=== PATIENT | male | born 1960 ===

== ENCOUNTER 2019-02-28 17:43 | Emergency (ER) | payer SELFPAY ==
--- NOTE | 2019-02-28 17:59 | EDPHYS ---
Physician Documentation [facility] Name: Pedro Mon Age: 59 yrs Sex: Male : 1960 Arrival Date: 02/28/2019 Time: 17:45 Bed 3 Private MD: ED Physician Bryan Abrams HPI: 02/28 17:52 This 59 yrs old Male presents to ER via Wheelchair with complaints of chest concepción pain. 17:52 The patient or guardian reports chest pain that is located primarily in the substernal conecpción area. Onset: just prior to arrival. The pain does not radiate. Associated signs and symptoms: Pertinent positives: diaphoresis, lightheadedness, nausea, shortness of breath. The chest pain is described as clutching, crushing, a heaviness, a pressure. Modifying factors: The symptoms are alleviated by nothing. the symptoms are aggravated by nothing. Severity of pain: At its worst the pain was moderate in the emergency department the pain is unchanged. The patient has not experienced similar symptoms in the past. Historical: - Allergies: 17:50 No Known Allergies; ph - Home Meds: 17:50 None [Active]; ph - PMHx: 17:50 None; ph - Immunization history:: Adult Immunizations unknown. - Social history:: Smoking status: unknown. - Ebola Screening: : No symptoms or risks identified at this time. - Family history:: not pertinent. ROS: 17:52 Constitutional: Negative for fever, chills, and weight loss, Eyes: Negative for injury, concepción pain, redness, and discharge, ENT: Negative for injury, pain, and discharge, Neck: Negative for injury, pain, and swelling, Cardiovascular: Negative for chest pain, palpitations, and edema, Respiratory: Negative for shortness of breath, cough, wheezing, and pleuritic chest pain, Abdomen/GI: Negative for abdominal pain, nausea, vomiting, diarrhea, and constipation, Back: Negative for injury and pain, : Negative for injury, bleeding, discharge, and swelling, MS/Extremity: Negative for injury and deformity, Skin: Negative for injury, rash, and discoloration, Neuro: Negative for headache, weakness, numbness, tingling, and seizure, Psych: Negative for depression, anxiety, suicide ideation, homicidal ideation, and hallucinations, Allergy/Immunology: Negative for hives, rash, and allergies, Endocrine: Negative for neck swelling, polydipsia, polyuria, polyphagia, and marked weight changes, Hematologic/Lymphatic: Negative for swollen nodes, abnormal bleeding, and unusual bruising. Exam: 17:52 Constitutional: This is a well developed, well nourished patient who is awake, alert, concepción and in no acute distress. Head/Face: Normocephalic, atraumatic. Eyes: Pupils equal round and reactive to light, extra-ocular motions intact. Lids and lashes normal. Conjunctiva and sclera are non-icteric and not injected. Cornea within normal limits. Periorbital areas with no swelling, redness, or edema. ENT: Nares patent. No nasal discharge, no septal abnormalities noted. Tympanic membranes are normal and external auditory canals are clear. Oropharynx with no redness, swelling, or masses, exudates, or evidence of obstruction, uvula midline. Mucous membranes moist. Neck: Trachea midline, no thyromegaly or masses palpated, and no cervical lymphadenopathy. Supple, full range of motion without nuchal rigidity, or vertebral point tenderness. No Meningismus. Chest/axilla: Normal chest wall appearance and motion. Nontender with no deformity. No lesions are appreciated. Cardiovascular: Regular rate and rhythm with a normal S1 and S2. No gallops, murmurs, or rubs. Normal PMI, no JVD. No pulse deficits. Respiratory: Lungs have equal breath sounds bilaterally, clear to auscultation and percussion. No rales, rhonchi or wheezes noted. No increased work of breathing, no retractions or nasal flaring. Abdomen/GI: Soft, non-tender, with normal bowel sounds. No distension or tympany. No guarding or rebound. No evidence of tenderness throughout. Back: No spinal tenderness. No costovertebral tenderness. Full range of motion. MS/ Extremity: Pulses equal, no cyanosis. Neurovascular intact. Full, normal range of motion. Neuro: Awake and alert, GCS 15, oriented to person, place, time, and situation. Cranial nerves II-XII grossly intact. Motor strength 5/5 in all extremities. Sensory grossly intact. Cerebellar exam normal. Normal gait. Psych: Awake, alert, with orientation to person, place and time. Behavior, mood, and affect are within normal limits. 17:52 Skin: Appearance: Color: normal in color, Temperature: cool, Moisture: diaphoretic, petechiae, not noted, ecchymosis, not noted. Vital Signs: 17:49 BP 157 / 109; Pulse 96; Resp 25; Temp 98(O); Pulse Ox 99% ; Weight 77.11 kg (M); Pain tw2 10/10; 18:05 BP 147 / 87; Pulse 91; Resp 16; Pulse Ox 99% on R/A; tw2 18:26 BP 151 / 107; Pulse 70; Resp 15; Pulse Ox 98% on R/A; tw2 18:32 BP 154 / 110; Pulse 80; Resp 17; Pulse Ox 98% on R/A; tw2 MDM: 17:46 Patient medically screened. [facility] 17:52 Data reviewed: vital signs, nurses notes, lab test result(s), EKG, radiologic studies, concepción plain films. 02/28 17:52 Order name: Basic Metabolic Panel [facility] 02/28 17:52 Order name: CBC with Diff [facility] 02/28 17:52 Order name: LFT's [facility] 02/28 17:52 Order name: Magnesium [facility] 02/28 17:52 Order name: NT PRO-BNP [facility] 02/28 17:52 Order name: PT-INR [facility] 02/28 17:52 Order name: Troponin (emerg Dept Use Only) [facility] 02/28 17:52 Order name: XRAY Chest (1 view) [facility] 02/28 17:52 Order name: EKG; Complete Time: 17:53 [facility] 02/28 17:52 Order name: Cardiac monitoring; Complete Time: 18:04 [facility] 02/28 17:52 Order name: EKG - Nurse/Tech; Complete Time: 18:04 [facility] 02/28 17:52 Order name: IV Saline Lock; Complete Time: 18:04 [facility] 02/28 17:52 Order name: Labs collected and sent; Complete Time: 18:04 [facility] 02/28 17:52 Order name: O2 Per Protocol; Complete Time: 18:04 [facility] 02/28 17:52 Order name: O2 Sat Monitoring; Complete Time: 18:04 [facility] 02/28 17:52 Order name: NPO; Complete Time: 18:00 [facility] Administered Medications: 17:49 Drug: Aspirin Chewable Tablet 324 mg Route: PO; tw2 18:04 Follow up: Response: No adverse reaction tw2 17:50 Drug: Heparin ([place]-Bolus with thrombolytic) - HEParin 60 units/kg {Co-Signature: ph tw2 (Alycia Farmer RN).} Route: IVP; Site: left antecubital; 18:29 Follow up: Response: No adverse reaction tw2 17:53 CANCELLED (Duplicate Order): HEParin 5000 units IV at 1 bolus once tw2 17:53 CANCELLED (Duplicate Order): Aspirin Chewable Tablet 324 mg PO once; 81 mg tablets x 4 tw2 17:53 CANCELLED (Duplicate Order): Tenecteplase 40 mg IV at bolus once tw2 17:54 Drug: NS 0.9% 1000 ml Route: IV; Rate: 1 bolus; Site: left antecubital; tw2 18:28 Follow up: Response: No adverse reaction; IV Status: Completed infusion; IV Intake: tw2 1000ml 17:54 Drug: Tenecteplase 40 mg {Co-Signature: ss (Annie Webber RN).} {Note: administered by tw2 Annie Webber RN.} Route: IV; Rate: per protocol; Site: left antecubital; 17:58 Follow up: Response: No adverse reaction; IV Status: Completed infusion tw2 17:56 Drug: morphine 4 mg Route: IVP; Site: left antecubital; tw2 18:26 Follow up: Response: No adverse reaction; Pain is unchanged, physician notified tw2 17:56 Drug: Zofran 4 mg Route: IVP; Site: left antecubital; tw2 18:26 Follow up: Response: No adverse reaction tw2 18:01 Drug: Heparin ([place] Drip) 12 units/kg/hr - (HEParin 58987 units, D5W 500 ml) tw2 {Co-Signature: ph (Alycia Farmer RN).} Route: IV; Rate: calculated rate; Site: left antecubital; 18:33 Follow up: IV Status: Infusion continued upon transfer tw2 18:05 Drug: morphine 4 mg Route: IVP; Site: right antecubital; tw2 18:23 Follow up: Response: No adverse reaction; Pain is unchanged, physician notified tw2 18:20 Drug: Zofran 4 mg Route: IVP; Site: right antecubital; tw2 18:37 Follow up: Response: No adverse reaction ph 18:23 Drug: morphine 4 mg Route: IVP; Site: right antecubital; tw2 18:36 Follow up: Response: No adverse reaction ph 18:39 Follow up: Response: No adverse reaction; Pain is decreased tw2 18:25 Drug: Lopressor 2.5 mg Route: IVP; Site: right antecubital; tw2 18:26 Follow up: BP 151 / 107; Pulse 70 bpm; Resp 15 bpm; Pulse Ox 98% RA; Response: No tw2 adverse reaction 18:25 Drug: Lopressor 2.5 mg Route: IVP; Site: right antecubital; tw2 18:33 Follow up: Response: No adverse reaction tw2 18:36 Drug: Lopressor 2.5 mg Route: IVP; Site: right antecubital; ph 18:39 Follow up: Response: No adverse reaction tw2 Disposition: 02/28/19 17:58 Transfer ordered to [facility]. Diagnosis are ST elevation (STEMI) myocardial infarction of inferior wall, Essential (primary) hypertension. - Reason for transfer: Higher level of care. - Accepting physician is dr moreno. - Condition is Serious. - Problem is new. - Symptoms are unchanged. Signatures: Dispatcher [employer] Bryan Tirado MD MD cha Hall, Patricia, RN RN ph Sunita Cam RN RN 2 Alycia Farmer RN ph Annie Webber RN Corrections: (The following items were deleted from the chart) 17:53 17:52 HEParin 5000 units IV at 1 bolus once ordered. [facility] tw2 17:53 17:52 Aspirin Chewable Tablet 324 mg PO once; 81 mg tablets x [address]. [place] [id number] 17:53 17:52 Tenecteplase 40 mg IV at bolus once ordered. 2 tw2 18:40 17:58 02/28/2019 17:58 Transfer ordered to [facility]. Diagnosis is tw2 ST elevation (STEMI) myocardial infarction of inferior wall; Essential (primary) hypertension. Reason for transfer: Higher level of care. Accepting physician is dr moreno. Condition is Serious. Problem is new. Symptoms are unchanged. [facility]
--- NOTE | 2019-02-28 17:59 | ER ---
Nurse's Notes [facility] Name: Pedro Mon Age: 59 yrs Sex: Male : 1960 Arrival Date: 02/28/2019 Time: 17:45 Bed 3 Private MD: Diagnosis: ST elevation (STEMI) myocardial infarction of inferior wall;Essential (primary) hypertension Presentation: 02/28 17:51 Presenting complaint: Brought in by neighbor who found pt down in yard, c/o chest pain ph after doing yard work. Transition of care: patient was not received from another setting of care. Onset of symptoms was February 28, 2019. Risk Assessment: Do you want to hurt yourself or someone else? Patient reports no desire to harm self or others. Initial Sepsis Screen: Does the patient meet any 2 criteria? No. Patient's initial sepsis screen is negative. Does the patient have a suspected source of infection? No. Patient's initial sepsis screen is negative. Care prior to arrival: None. 17:51 Acuity: SARAH 1 ph 17:51 Method Of Arrival: Wheelchair Triage Assessment: 17:47 General: Appears uncomfortable, Behavior is anxious. Pain: Complains of pain in chest. tw2 EENT: No signs and/or symptoms were reported regarding the EENT system. Neuro: Level of Consciousness is awake, alert, obeys commands, Oriented to person, place, time, situation. Neuro:. Cardiovascular: Reports chest pain, Heart tones S1 S2 Capillary refill. Respiratory: Airway is patent Respiratory effort is even, unlabored, Respiratory pattern is regular, tachypnea Breath sounds are clear bilaterally. GI: No signs and/or symptoms were reported involving the gastrointestinal system. : No signs and/or symptoms were reported regarding the genitourinary system. Derm: Skin is intact, is healthy with good turgor, Skin is diaphoretic, Skin temperature is warm. Musculoskeletal: Range of motion: intact in all extremities. Historical: - Allergies: 17:50 No Known Allergies; ph - Home Meds: 17:50 None [Active]; ph - PMHx: 17:50 None; ph - Immunization history:: Adult Immunizations unknown. - Social history:: Smoking status: unknown. - Ebola Screening: : No symptoms or risks identified at this time. - Family history:: not pertinent. Screenin:04 Abuse screen: Denies threats or abuse. Nutritional screening: No deficits noted. tw2 Tuberculosis screening: No symptoms or risk factors identified. Fall Risk None identified. Assessment: 18:05 Reassessment: see triage assessment. tw2 18:17 Reassessment: Pt reports that pain has decreased to 6/10, denies nausea, report called ph to [facility], awaiting [facility]. 18:37 Reassessment: [facility] at bedside. ph 18:40 Reassessment: Patient and/or family updated on plan of care and expected duration. Pain tw2 level reassessed. Patient is alert, oriented x 3, equal unlabored respirations, skin warm/dry/pink. pt rolling out on [facility] stretcher at this time. Vital Signs: 17:49 BP 157 / 109; Pulse 96; Resp 25; Temp 98(O); Pulse Ox 99% ; Weight 77.11 kg (M); Pain tw2 10/10; 18:05 BP 147 / 87; Pulse 91; Resp 16; Pulse Ox 99% on R/A; tw2 18:26 BP 151 / 107; Pulse 70; Resp 15; Pulse Ox 98% on R/A; tw2 18:32 BP 154 / 110; Pulse 80; Resp 17; Pulse Ox 98% on R/A; tw2 ED Course: 17:45 Patient arrived in ED. tw2 17:45 Bryan Abrams MD is Attending Physician. [facility] 17:45 Bed in low position. Call light in reach. sales and in home delivery specialist on. Pulse ox on. NIBP on. tw2 17:45 Inserted saline lock: 20 gauge in right antecubital area, using aseptic technique. ph Blood collected. Inserted saline lock: 18 gauge in left antecubital area, using aseptic technique. 17:50 Alycia Farmer, RN is Primary Nurse. ph 17:52 Triage completed. ph 18:04 Arm band placed on. tw2 18:10 XRAY Chest (1 view) In Process Unspecified. EDMS 18:38 No provider procedures requiring assistance completed. ph 18:40 Patient transferred, IV remains in place. ph Administered Medications: 17:49 Drug: Aspirin Chewable Tablet 324 mg Route: PO; tw2 18:04 Follow up: Response: No adverse reaction tw2 17:50 Drug: Heparin ([place]-Bolus with thrombolytic) - HEParin 60 units/kg {Co-Signature: ph tw2 (Alycia Farmer RN).} Route: IVP; Site: left antecubital; 18:29 Follow up: Response: No adverse reaction tw2 17:53 CANCELLED (Duplicate Order): HEParin 5000 units IV at 1 bolus once tw2 17:53 CANCELLED (Duplicate Order): Aspirin Chewable Tablet 324 mg PO once; 81 mg tablets x 4 tw2 17:53 CANCELLED (Duplicate Order): Tenecteplase 40 mg IV at bolus once tw2 17:54 Drug: NS 0.9% 1000 ml Route: IV; Rate: 1 bolus; Site: left antecubital; tw2 18:28 Follow up: Response: No adverse reaction; IV Status: Completed infusion; IV Intake: tw2 1000ml 17:54 Drug: Tenecteplase 40 mg {Co-Signature: ss (Annie Webber RN).} {Note: administered by tw2 Annie Webber RN.} Route: IV; Rate: per protocol; Site: left antecubital; 17:58 Follow up: Response: No adverse reaction; IV Status: Completed infusion tw2 17:56 Drug: morphine 4 mg Route: IVP; Site: left antecubital; tw2 18:26 Follow up: Response: No adverse reaction; Pain is unchanged, physician notified tw2 17:56 Drug: Zofran 4 mg Route: IVP; Site: left antecubital; tw2 18:26 Follow up: Response: No adverse reaction tw2 18:01 Drug: Heparin ([place] Drip) 12 units/kg/hr - (HEParin 83043 units, D5W 500 ml) tw2 {Co-Signature: ph (Alycia Farmer RN).} Route: IV; Rate: calculated rate; Site: left antecubital; 18:33 Follow up: IV Status: Infusion continued upon transfer tw2 18:05 Drug: morphine 4 mg Route: IVP; Site: right antecubital; tw2 18:23 Follow up: Response: No adverse reaction; Pain is unchanged, physician notified tw2 18:20 Drug: Zofran 4 mg Route: IVP; Site: right antecubital; tw2 18:37 Follow up: Response: No adverse reaction 18:23 Drug: morphine 4 mg Route: IVP; Site: right antecubital; tw2 18:36 Follow up: Response: No adverse reaction ph 18:39 Follow up: Response: No adverse reaction; Pain is decreased tw2 18:25 Drug: Lopressor 2.5 mg Route: IVP; Site: right antecubital; tw2 18:26 Follow up: BP 151 / 107; Pulse 70 bpm; Resp 15 bpm; Pulse Ox 98% RA; Response: No tw2 adverse reaction 18:25 Drug: Lopressor 2.5 mg Route: IVP; Site: right antecubital; tw2 18:33 Follow up: Response: No adverse reaction tw2 18:36 Drug: Lopressor 2.5 mg Route: IVP; Site: right antecubital; ph 18:39 Follow up: Response: No adverse reaction tw2 Intake: 18:28 IV: 1000ml; Total: 1000ml. tw2 Outcome: 17:58 ER care complete, transfer ordered by MD. beebe 18:39 Transferred by helicopter to [facility], Transfer form completed. ph X-rays sent w/ patient. 18:39 critical 18:39 Instructed on the need for transfer. 18:40 Patient left the ED. tw2 Signatures: Dispatcher [employer] EDBryan Castelan MD MD cha Hall, Patricia RN RN ph Sunita Cam RN RN tw2 Alycia Farmer RN ph Annie Webber RN
[2019-02-28] MEDS ORDERED: HEPARIN/D5W 25,000 UNIT/500 ML BAG IV ONE (18:02)
[2019-02-28] MEDS ORDERED: HEPARIN 5000 UNIT/ML 1 ML VIAL ONE (18:02)
[2019-02-28] MEDS ORDERED: ASPIRIN 81 MG CHEWABLE TABLET ONE (18:02)
[2019-02-28] MEDS ORDERED: NA CHLORIDE 0.9% 1,000 ML ONE (18:03)
[2019-02-28] MEDS ORDERED: TENECTEPLASE 50 MG/10 ML VIAL IV ONE (18:05)
[2019-02-28] MEDS ORDERED: MORPHINE 4 MG/ML SYR ONE ×3 (18:10→18:35)
[2019-02-28] MEDS ORDERED: ONDANSETRON 4 MG/2 ML VIAL ONE ×2 (18:10→18:35)
--- NOTE | 2019-02-28 18:18 | RAD REPORT ---
EXAM DESCRIPTION: RAD - Chest Single View - 02/28/2019 6:09 pm CLINICAL HISTORY: CHEST PAIN Chest pain. COMPARISON: <Comparisons> FINDINGS: Portable technique limits examination quality. Mild pulmonary edema. The heart is mildly enlarged in size. No displaced fractures. IMPRESSION: Mild CHF versus volume overload pattern.
[2019-02-28 18:26] LABS: Protime INR 0.92
[2019-02-28] MEDS ORDERED: METOPROLOL TARTRATE 5 MG/5 ML INJ IV ONE ×2 (18:35→18:49)
[2019-02-28 18:51] LABS: Absolute Lymphocytes (CBC) 5.4 K/uL (0.7-4.9); Absolute Monocytes 1.2 K/uL (0.1-1.3); Absolute Neutrophil 6.7 K/uL (1.8-8.0); Basophils % 0.8 % (0-1.3); Eosinophils % 1.5 % (0-4.4); Hematocrit 55.6 % (39.6-49.0); Lymphocytes % 39.4 % (15.3-44.8); MPV 9.1 fL (7.6-11.3); RBC Red Blood Cell Count 6.41 M/uL (4.33-5.43)
[2019-02-28 18:54] LABS: ALT/SGPT 34 U/L (12-78); AST/SGOT 14 U/L (15-37); Albumin 4.1 g/dL (3.4-5.0); Alkaline Phosphatase 176 U/L (45-117); BUN Blood Urea Nitrogen 15 mg/dL (7-18); Bicarbonate 26 mmol/L (21-32); Bilirubin Direct < 0.1 mg/dL (0-0.2); Bilirubin Total 0.4 mg/dL (0.2-1.0); Glucose Level 184 mg/dL (74-106); Magnesium 2.2 mg/dL (1.8-2.4); NT PRO-BNP 10 pg/mL (<125); Potassium 3.5 mmol/L (3.5-5.1); Protein, Total 8.3 g/dL (6.4-8.2); Sodium Level 142 mmol/L (136-145); Troponin (Emerg Dept Use Only) < 0.02 ng/mL (0.0-0.045)
--- NOTE | 2019-03-01 07:32 | EKG ---
Test Date: 2019-02-28 Test Time: 17:45:32 Kennel Assistant: MEASUREMENT RESULTS: Intervals: Rate: 95 MO: 172 QRSD: 102 QT: 332 QTc: 417 [place]: P: 58 MO: 172 QRS: 65 T: 91 INTERPRETIVE STATEMENTS: Normal sinus rhythm ST elevation, consider inferolateral injury or acute infarct ACUTE FL Consider right ventricular involvement in acute inferior infarct Abnormal ECG No previous ECG available for comparison Electronically Signed On 03-01-19 07:31:09 CDT by Cachorro Brown
== END 2019-02-28 18:40 | disposition short-term general hospital (02) ==
LOC: ER 17:43
DX: I21.19 ST elevation (STEMI) myocardial infarction involving other coronary artery of inferior wall (principal); I10 Essential (primary) hypertension
CPT/HCPCS: 36415; 71045; 80048; 80076; 83735; 83880; 84484; 85025; 85610; 92977; 93005; 99285; J1644; J2405; J3101; J7030